=== PATIENT | male | born 1955 | race African-American/Black ===

== ENCOUNTER → 2020-05-01 | Outpatient (CLI) | payer MEDICARE ==
--- NOTE | 2020-05-01 10:30 | Diagnostic Imaging Report ---
Abdomen, one view INDICATION: ^[id number] ^INDETERMINATE COLITIS/CELLULITIS LT LOWER LIMB Comparison: None available. Discussion: No radiographically apparent renal calculi are visualized. No calcification is identified in the expected course of the ureters or region of the bladder. No dilated loops of small bowel are identified. Moderate colonic stool retention is noted within the ascending and transverse colon. Lung bases are clear. Lateral acetabular overhanging osteophytes are noted. IMPRESSION: Nonobstructive bowel gas pattern. Moderate colonic stool retention is noted. Overhanging lateral acetabular osteophytes, right greater than left, could predispose patient to impingement syndrome. Signed by: Kenneth Alcaraz MD on 05/01/2020 10:27 AM
== END ==
LOC: RAD 09:40
PROVIDERS: ATTEND Family Medicine
DX: K52.3 Indeterminate colitis (principal); L03.116 Cellulitis of left lower limb
CPT/HCPCS: 74018